=== PATIENT | female | born 1985 | race Caucasian/White ===

== ENCOUNTER 2017-07-21 03:15 | Emergency (ER) | payer MEDICAID, MEDICARE ==
[~2017-07-21] VITALS: Ht 162.6 cm; Wt 95.8 kg
[~2017-07-21 03:15] MED LIST: IBUP-2213 PO
[2017-07-21 03:21] VITALS: BP 135/83
--- NOTE | 2017-07-21 03:32 | NUR ---
32/ CAME IN WITH , C/O 08/02 SHARP RUQ PAIN, RADIATING TO R LATERAL SIDE, X2 WEEKS. PT WAS PREVIOUSLY SEEN AT [facility] FOR SIMILAR SYMPTOMS, HAD BLOOD AND URINE TESTS, WAS PRESCRIBED BENADRYL AND TYLENOL. TYLENOL 500MG PO LAST TAKEN AT 1999 WITH LITTLE RELIEF. HX CHOLECYSTECTOMY. NKA. PT REPORTS ITCHING. PT DENIES FEVER, CP, SOB, COUGH, N/V/D, DYSURIA; SKIN IS INTACT, PINK/WARM/DRY; AAOX4, PERRL, WITH EVEN AND STEADY GAIT; LUNGS CLEAR BL, BREATHING UNLABORED; HR EVEN AND REGULAR, BL PERIPHERAL PULSES PRESENT; BS ACTIVE X4, NO TENDERNESS TO PALPATION; VSS; PATIENT POSITIONED FOR COMFORT; HOB ELEVATED; BEDRAILS UP X2; BED DOWN. Addendum: 07/21/17 at 0415 by ALBERTO TENDERNESS TO RUQ, DENIES LOWER QUADRANT TENDERNESS
--- NOTE | 2017-07-21 03:32 | NUR ---
PT TAKEN TO BED 4
[2017-07-21 04:16] LABS: BASOPHILS # (AUTO) 0.1 K/uL (0.00-0.22); BASOPHILS % (AUTO) 0.7 % (0.0-2.0); EOSINOPHILS # (AUTO) 0.2 K/uL (0-0.4); EOSINOPHILS % (AUTO) 2.9 % (0.0-4.0); HEMATOCRIT 36.9 % (36-48); HEMOGLOBIN 11.9 g/dL (12.0-16.0); LYMPHOCYTES # (AUTO) 3.3 K/uL (2.5-16.5); LYMPHOCYTES % (AUTO) 41.3 % (20.5-51.1); MEAN CORPUSCULAR HEMOGLOBIN 28 pg (27-31); MEAN CORPUSCULAR HGB CONC 32 g/dL (33-37); MEAN CORPUSCULAR VOLUME 85.9 fL (80-94); MONOCYTES # (AUTO) 0.5 K/uL (0.8-1.0); MONOCYTES % (AUTO) 6.1 % (1.7-9.3); NEUTROPHILS # (AUTO) 3.9 K/uL (1.8-7.7); PLATELET COUNT (AUTO) 253 K/uL (140-450); RED CELL DISTRIBUTION WIDTH 14.5 % (11.6-13.7)
[2017-07-21 04:16] LABS: APPEARANCE,URINE CLOUDY (CLEAR); BILIRUBIN,URINE NEGATIVE (NEGATIVE); BLOOD, URINE TRACE-I (NEGATIVE); COLOR,URINE YELLOW (YELLOW); LEUKOCYTE ESTERASE ,URINE TRACE (NEGATIVE); NITRITE, URINE NEGATIVE (NEGATIVE); UGLUCOSE NEGATIVE (NEGATIVE)
[2017-07-21 04:25] LABS: ANION GAP 11.1 (8-16); CARBON DIOXIDE 27.6 mmol/L (21-32); CREATININE 0.7 mg/dL (0.6-1.3); POTASSIUM 3.7 mmol/L (3.5-5.1)
[2017-07-21 04:28] LABS: RBC,URINE 3-10 (FEW) /HPF (0-5)
[2017-07-21 04:33] LABS: ALBUMIN 3.6 g/dL (3.4-5.0); TOTAL BILIRUBIN 0.4 mg/dL (0.0-1.0)
--- NOTE | 2017-07-21 04:41 | NUR ---
Ultrasound at bedside.
[2017-07-21] MEDS ORDERED: cefTRIAXone 1,000 MG VIAL ONE (05:44)
--- NOTE | 2017-07-21 05:59 | NUR ---
PT RESTING COMFORTABLY IN BED, PT REPORTS 6/10 CONSTANT RUQ PAIN AND HEADACHE, MADE DR RUIZ AWARE, ORDERS PENDING, WILL CARRY OUT.
[2017-07-21] MEDS ORDERED: KETOROLAC 30 MG/ML VIAL IVP ONE (06:10)
--- NOTE | 2017-07-21 06:22 | NUR ---
Dr. Woods evaluating patient at bedside.
--- NOTE | 2017-07-21 07:04 | NUR ---
PT RESTING COMFORTABLY IN BED, VSS, PT REPORTS DECREASED PAIN 2/10, ALL NEEDS MET AT THIS TIME.
--- NOTE | 2017-07-21 07:15 | NUR ---
Received report from ROLDAN Lester . Transfer of care at this time.
--- NOTE | 2017-07-21 07:16 | NUR ---
Dafne freire in [facility] - 07/21/17 at 0720 by CAM Pt report given to ROBERT SIMMONS Transfer of care at this time.
--- NOTE | 2017-07-21 07:20 | NUR ---
Pt. in bed resting comfortably w/ at bedside. pt. aaox4, RR even and unlabored. Will continue to monitor.
[2017-07-21 07:50] VITALS: BP 129/77
--- NOTE | 2017-07-21 07:50 | NUR ---
Patient discharged with v/s stable. Written and verbal after care instructions given and explained. Patient alert, oriented and verbalized understanding of instructions. Ambulatory with steady gait. All questions addressed prior to discharge. ID band removed. Patient advised to follow up with PMD. Rx of MACROBID, NAPROSYN given. Patient educated on indication of medication including possible reaction and side effects. Opportunity to ask questions provided and answered.
== END 2017-07-21 07:50 | disposition home or self-care (01) ==
LOC: MED 03:15
DX: N39.0 Urinary tract infection, site not specified (principal); N93.0 Postcoital and contact bleeding
CPT/HCPCS: 36415; 76705; 80053; 81001; 81025; 83690; 85025; 87086; 96365; 96375; 99285; J0696; J1885; J7060; Q0092